=== PATIENT | female | born 1970 | race Caucasian/White ===

== ENCOUNTER 2018-04-07 09:25 | Emergency (ER) | payer BC ==
--- OUTSIDE RECORDS SUMMARY | 2018-04-07 09:27 | XMS REPORT | Clinical Summary ---
:1970 Author Organization [facility] Address [address] [place] [address] Care Team Providers Name Role Phone Ajay Daley MD Primary Care Provider Allergies No Known Allergies Current Medications Prescription Sig. Disp. Refills Start Date End Date Status CYANOCOBALAMIN, Take by mouth. Active VITAMIN B-12, (VITAMIN B-12 ORAL) CHOLECALCIFEROL, Take by mouth. Active VITAMIN D3, (VITAMIN D3 ORAL) methIMAzole (TAPAZOLE) Take 5 mg by Active 5 MG tablet mouth daily. methIMAzole (TAPAZOLE) Take 5 mg by 04/24/2017 Discontinued 5 MG tablet mouth 3 (three) times a day. Active Problems Not on file Encounters Date Type Specialty Care Team Description 04/24/2017 Office Visit Endocrinology Van Thompson, Hyperthyroidism ( Primary Dx); Graves disease after 04/06/2017 Family History Medical History Relation Name Comments No Known Problems Father Hypertension Mother Stroke Mother Relation Name Status Comments Father Alive Mother Alive Social History Tobacco Use Types Packs/Day Years Used Date Former Smoker Comments: quit Alcohol Use Drinks/Week oz/Week Comments Yes Sex Assigned at Date Recorded Not on file Last Filed Vital Signs Vital Sign Reading Time Taken Blood Pressure 124/67 04/24/2017 12:04 PM CDT Pulse 66 04/24/2017 12:04 PM CDT Temperature - - Respiratory Rate - - Oxygen Saturation - - Inhaled Oxygen Concentration - - Weight 90.3 kg (199 lb) 04/24/2017 12:04 PM CDT Height 175.3 cm (5' 9") 04/24/2017 12:04 PM CDT Body Mass Index 29.39 04/24/2017 12:04 PM CDT Plan of Treatment Health Maintenance Due Date Last Done Comments CERVICAL CANCER SCREENING 1989 INFLUENZA VACCINE 05/12/2018 Procedures Procedure Name Priority Date/Time Associated Comments Diagnosis T4, FREE Routine 04/24/2017 12:46 Hyperthyroidism Results for this PM CDT Graves disease procedure are in the results section. COMPREHENSIVE Routine 04/24/2017 12:46 Hyperthyroidism Results for this METABOLIC PANEL PM CDT Graves disease procedure are in the results section. CBC WITH PLATELET AND Routine 04/24/2017 12:46 Hyperthyroidism Results for this DIFFERENTIAL PM CDT Graves disease procedure are in the results section. T3, FREE Routine 04/24/2017 12:46 Hyperthyroidism Results for this PM CDT Graves disease procedure are in the results section. THYROID STIMULATING Routine 04/24/2017 12:46 Hyperthyroidism Results for this HORMONE PM CDT Graves disease procedure are in the results section. after 04/06/2017 Results CBC with platelet and differential (04/24/2017 12:46 PM) WBC 6.8 3.8 - 10.8 Thousand/uL [facility] [place] RBC 4.22 3.80 - 5.10 Million/uL [facility] [place] HGB 13.0 11.7 - 15.5 g/dL [facility] [place] HCT 38.7 35.0 - 45.0 % [facility] [place] MCV 91.7 80.0 - 100.0 fL [facility] [place] MCH 30.9 27.0 - 33.0 pg [facility] [place] MCHC 33.7 32.0 - 36.0 g/dL [facility] [place] RDW 13.1 11.0 - 15.0 % [facility] [employer] [facility] [place] Platelet count 223 140 - 400 Thousand/uL [facility] [place] MPV 8.2 7.5 - 12.5 fL [facility] [employer] [facility] [place] Neutrophils, absolute 3,808 1,500 - 7,800 cells/uL [facility] [place] Lymphocytes, absolute 2,530 850 - 3,900 cells/uL [facility] [place] Monocytes, absolute 326 200 - 950 cells/uL [facility] [place] Eosinophils, absolute 88 15 - 500 cells/uL [facility] [place] Basophils, absolute 48 0 - 200 cells/uL [facility] [place] Neutrophils 56.0 % [facility] [place] Lymphocytes 37.2 % [facility] [place] Monocytes 4.8 % [facility] [place] Eosinophils 1.3 % [facility] [place] Basophils + RC 0.7 % [facility] [place] Specimen Blood Resulting Agency Comment Performing Organization Information: Site ID: [id number]: [facility] Address: [address] [place], [place] [phone] Director: Josseline Escalante MD Performing Organization Address [facility] Phone Number [employer] [place] [phone] T3, free (04/24/2017 12:46 PM) T3, free 3.0 2.3 - 4.2 pg/mL [facility] [place] Specimen Blood Resulting Agency Comment Performing Organization Information: Site ID: [id number] Name: [facility] Address: [address] [place] [phone] Director: Josseline Escalante MD Performing Organization Address [facility] Center[facility]h Phone [place] [address] Thyroid stimulating hormone (04/24/2017 12:46 PM) TSH 0.93 mIU/L [facility] [place] Comment: Reference Range > or=20 Years0.40-4.50 Ranges First trimester0.26-2.66 Second trimester 0.55-2.73 Third trimester0.43-2.91 Specimen Blood Resulting Agency Comment Performing Organization Information: Site ID: [id number] Name: [facility] Address: [address] [place] [phone] Director: Josseline Escalante MD Performing Organization Address [facility] [place] [address] T4, free (04/24/2017 12:46 PM) T4, free 1.1 0.8 - 1.8 ng/dL [facility] [place] Specimen Blood Resulting Agency Comment Performing Organization Information: Site ID: [id number] Name: [facility] Address: [address] [place] [phone] Director: Josseline Escalante MD Performing Organization Address [facility] [place] [address] Comprehensive metabolic panel (04/24/2017 12:46 PM) Glucose 83 65 - 99 mg/dL [facility] Comment: [place] Fasting reference interval BUN, whole blood 9 7 - 25 mg/dL [facility] [place] Creatinine 0.73 0.50 - 1.10 mg/dL [facility] [place] EGFR Non-Afr. Tajik 97 > OR=60 [facility] mL/min/1.73m2 [place] EGFR 113 > OR=60 [facility] mL/min/1.73m2 [place] BUN/creatinine ratio NOT APPLICABLE 6 - 22 (calc) [facility] [place] Sodium 138 135 - 146 mmol/L [facility] [place] Potassium 3.9 3.5 - 5.3 mmol/L [facility] [place] Chloride 103 98 - 110 mmol/L [facility] [place] CO2 26 20 - 31 mmol/L [facility] [place] Calcium 10.2 8.6 - 10.2 mg/dL [facility] [place] Protein 7.0 6.1 - 8.1 g/dL [facility] [place] Albumin, S 4.2 3.6 - 5.1 g/dL [facility] [place] Globulin, total 2.8 1.9 - 3.7 g/dL [facility] (calc) [place] Albumin/globulin ratio 1.5 1.0 - 2.5 (calc) [facility] [place] Total bilirubin 0.5 0.2 - 1.2 mg/dL [facility] [place] Alkaline phosphatase 56 33 - 115 U/L [facility] [place] AST 20 10 - 35 U/L [facility] [place] ALT 14 6 - 29 U/L [facility] [place] Specimen Blood Resulting Agency Comment Performing Organization Information: Site ID: [id number] Name: [facility] Address: [address] [place] [phone] Director: Josseline Escalante MD Performing Organization Address City/State/Zipcode Phone Number [facility] [address] [place] [phone] after 04/06/2017 Insurance Payer Benefit Plan / Group Subscriber ID Type Phone Address BCBS BCBS CHOICE PPO/FEDERAL EMPL PPO xxxxxxxxxxxx PPO Home: [place] [phone] [address]
--- OUTSIDE RECORDS SUMMARY | 2018-04-07 09:27 | XMS REPORT | Summary of Care ---
:1970 Author Name CHANELL VERGARA M.D. Address [place] Physicians Unavailable , Care Team Providers Name Role Phone SHAJI Guadarrama, GABRIELA Unavailable Unavailable EDITA CHANDRA M.D. Unavailable Unavailable URSULA Guadarrama, CHANELL Unavailable Unavailable Amada Wild M.A. Unavailable Unavailable Unavailable Unavailable Unavailable Functional Status Name Dates Details Functional status health issues are not documented Status: Name Dates Details Cognitive status health issues are not documented Status: Problems Name Dates Details Exposure (994.9) Status: Active Itching (698.9, L29.9) Status: Active Visit for screening mammogram (V76.12, Z12.31) Status: Active Encounter for routine gynecological examination (V72.31, Z01.419) Status: Active Dysmenorrhea (625.3, N94.6) Status: Active Dyspareunia, female (625.0, N94.10) Status: Active Chronic vaginitis (616.10, N76.1) Status: Active Yeast infection (112.9, B37.9) Status: Active Medications Name Dates Details MethIMAzole TABS Refills: 0 Active Vitamin B-12 TABS Refills: 0 Active Vitamin D3 1000 UNIT Oral Tablet Refills: 0 Active Nystatin Powder NYSTATIN POWDER APPLY TO AFFECTED AREA BID PRN DISP : QS TO FILL / REFILL 1 Quantity: 45 Refills: 1 GABRIELA GIRARD M.D. Start : 14-Feb-2014 Active Naproxen 500 MG Oral Tablet NAPROSYN 550MG BID PRN DURING MENSES QTY: 30 , REFILL 2 Quantity: 30 Refills: 2 EDITA CHANDRA M.D. Start : 14-Feb-2014 Active Folic Acid CAPS Refills: 0 Active Probiotic CAPS Refills: 0 Active Nystatin Powder USE DIRECTED. Quantity: 1 Refills: 0 CHANELL VERGARA M.D. Start : 27-Mar-2017 Active NuvaRing 0.12-0.015 MG/24HR Vaginal Ring INSERT 1 RING VAGINALLY FOR 3 WEEKS THEN 1 WEEK OFF. Quantity: 1 Refills: 0 GABRIELA GIRARD M.D. Start : 13-Apr-2017 Active Allergies and Adverse Reactions Name Dates Details No Known Drug Allergies (Allergy) Status: Active Past Medical History Name Dates Details Dysmenorrhea (625.3, N94.6) Status: Active History of Diverticulosis (562.10, K57.90) Status: Resolved History of Graves disease (242.00, E05.00) Status: Resolved History of Kb's thyroiditis (245.2, E06.3) Status: Resolved History of hypothyroidism (V12.29, Z86.39) Status: Resolved History of Other and unspecified ovarian cysts (620.2, N83.20) Status: Resolved Procedures Procedure Dates Details History of Tubal Ligation Completed History of Hysteroscopy With Endometrial Ablation Completed Immunization Name Dates Details Immunizations not documented Family History Name Dates Details Family history of Diabetes Mellitus (V18.0) Status: Active Name Dates Details Family history of Acute Myocardial Infarction (V17.3) Status: Active Name Dates Details Family history of Acute Myocardial Infarction (V17.3) Status: Active Social History Name Dates Details - Status: Name Dates Details Former smoker Vital Signs Date Test Result Details No Known Vitals to report Results Date Description Value Details Results not documented Plan of Care Name Dates Details Planned Observations Planned Goals not documented Interventions Provided Medication ChangesNystatin Powder - Renew Instructions Name Dates Details Instructions not documented Encounters Appointment; GABRIELA GIRARD M.D. On: 27-Mar-2017 10:15 Encounter Diagnosis: Problem not documented
[2018-04-07] MEDS ORDERED: MECLIZINE HCL 12.5 MG TAB ONE (10:01)
--- NOTE | 2018-04-07 10:27 | EDPHYS ---
Physician Documentation [facility] Name: Yumi Ba Age: 47 yrs Sex: Female : 1970 Arrival Date: 04/07/2018 Time: : Bed 15 Private MD: Ajay Daley ED Physician Vasu Gee HPI: 04/07 09:36 This 47 yrs old Female presents to ER via Unassigned with complaints of kav Dizziness. 09:50 The patient presents with vertigo. Onset: The symptoms/episode began/occurred acutely, kav this morning. Context: occurred at home, just prior to the episode the patient experienced no apparent symptoms. Modifying factors: The symptoms are alleviated by lying down, the symptoms are aggravated by movement of head. Associated signs and symptoms: Pertinent negatives: blurred vision, chest pain, confusion, diaphoresis, focal weakness, head injury, headache, nausea, near-syncope, palpitations, seizure, syncope, tingling. Severity of symptoms: At their worst the symptoms were mild just prior to arrival. Patient's baseline: Neuro: alert and fully oriented, Motor: no deficits, Ambulation: walks without assistance, Speech: normal, The patient has a previous history of vertigo. The patient has experienced a previous episode, approximately 1 years ago. The patient has not recently seen a physician. . 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 - Social history:: Smoking status: Patient/guardian denies using tobacco, Patient/guardian denies using alcohol. - Ebola Screening: : Patient negative for fever greater than or equal to 101.5 degrees Fahrenheit, and additional compatible Ebola Virus Disease symptoms Patient denies exposure to infectious person Patient denies travel to an Ebola-affected area in the 21 days before illness onset Patient negative for fever greater than or equal to 101.5 degrees Fahrenheit, and additional compatible Ebola Virus Disease symptoms. - Hospitalizations: : No recent hospitalization is reported. ROS: 09:50 Constitutional: Negative for fever, chills, and weight loss, Eyes: Negative for injury, kav pain, redness, and discharge, ENT: Negative for injury, pain, and discharge, Neck: Negative for injury, pain, and swelling, Cardiovascular: Negative for chest pain, palpitations, and edema, Respiratory: Negative for shortness of breath, cough, wheezing, and pleuritic chest pain, Abdomen/GI: Negative for abdominal pain, nausea, vomiting, diarrhea, and constipation, Back: Negative for injury and pain, : Negative for injury, bleeding, discharge, and swelling, MS/Extremity: Negative for injury and deformity, Skin: Negative for injury, rash, and discoloration, Psych: Negative for depression, anxiety, suicide ideation, homicidal ideation, and hallucinations, Allergy/Immunology: Negative for hives, rash, and allergies, Endocrine: Negative for neck swelling, polydipsia, polyuria, polyphagia, and marked weight changes, Hematologic/Lymphatic: Negative for swollen nodes, abnormal bleeding, and unusual bruising. 09:50 Neuro: Positive for altered mental status, dizziness, vertigo, Negative for altered mental status, gait disturbance, headache, hearing loss, loss of consciousness, seizure activity, syncope, tingling, tinnitus, tremor, visual changes, weakness, acute changes. Exam: 09:50 Constitutional: This is a well developed, well nourished patient who is awake, alert, kav and in no acute distress. Head/Face: Normocephalic, atraumatic. Eyes: Pupils equal round and reactive to light, extra-ocular motions intact. Lids and lashes normal. Conjunctiva and sclera are non-icteric and not injected. Cornea within normal limits. Periorbital areas with no swelling, redness, or edema. Neck: Trachea midline, no thyromegaly or masses palpated, and no cervical lymphadenopathy. Supple, full range of motion without nuchal rigidity, or vertebral point tenderness. No Meningismus. Chest/axilla: Normal chest wall appearance and motion. Nontender with no deformity. No lesions are appreciated. Cardiovascular: Regular rate and rhythm with a normal S1 and S2. No gallops, murmurs, or rubs. Normal PMI, no JVD. No pulse deficits. Respiratory: Lungs have equal breath sounds bilaterally, clear to auscultation and percussion. No rales, rhonchi or wheezes noted. No increased work of breathing, no retractions or nasal flaring. Abdomen/GI: Soft, non-tender, with normal bowel sounds. No distension or tympany. No guarding or rebound. No evidence of tenderness throughout. Back: No spinal tenderness. No costovertebral tenderness. Full range of motion. Skin: Warm, dry with normal turgor. Normal color with no rashes, no lesions, and no evidence of cellulitis. MS/ Extremity: Pulses equal, no cyanosis. Neurovascular intact. Full, normal range of motion. Neuro: Awake and alert, GCS 15, oriented to person, place, time, and situation. Cranial nerves II-XII grossly intact. Motor strength 5/5 in all extremities. Sensory grossly intact. Cerebellar exam normal. Normal gait. Psych: Awake, alert, with orientation to person, place and time. Behavior, mood, and affect are within normal limits. 09:50 ENT: External ear(s): are unremarkable, no acute changes, Ear canal(s): are normal, no acute changes, TM's: decreased mobility, on the left, fluid levels, on the left, Examination of the other ear shows no obvious abnormality, Nose: is normal, no acute changes, Examination of the other nostril shows no obvious abnormality, Mouth: is normal, no acute changes, Posterior pharynx: is normal, no acute changes, Voice: no acute changes. Vital Signs: 09:55 BP 112 / 67; Pulse 63; Resp 18; Temp 98.1(TE); Pulse Ox 98% on R/A; Weight 88.9 kg; hj Height 5 ft. 9 in. (175.26 cm); Pain 0/10; 09:55 Body Mass Index 28.94 (88.90 kg, 175.26 cm) MDM: 09:41 Medical screening is not applicable. [facility] 09:50 Data reviewed: vital signs, nurses notes. ka Administered Medications: 09:50 Drug: Meclizine 25 mg Route: PO; 10:47 Follow up: Response: No adverse reaction Disposition: 04/08 06:33 Co-signature as Attending Physician, Vasu Gee MD I agree with the assessment and tori plan of care. Disposition: 04/07/18 10:26 Discharged to Home. Impression: Vertigo of central origin, left ear, Suppurative otitis media, unspecified, left ear. - Condition is Stable. - Discharge Instructions: Otitis Media, Adult, [id number], Vertigo, [id number]. - Prescriptions for amoxicillin 500 mg Oral capsule - take 2 capsule by ORAL route every 8 hours; 42 capsule. Meclizine 25 mg Oral Tablet - take 1 tablet by ORAL route every 8 hours As needed; 30 tablet. Medrol (Chuck) 4 mg Oral Tablets, Dose Pack - take 1 tablet by ORAL route as directed - follow package instructions; 1 packet. - Medication Reconciliation Form, Thank You Letter, Antibiotic Education, Prescription Opioid Use, Work release form form. - Follow up: Ajay Daley; Reason: If symptoms return, Recheck today's complaints, Continuance of care, Re-evaluation by your physician. - Problem is new. - Symptoms have improved. Signatures: Vasu Gee MD MD cha Vern, Katherine, CLINICAL RESEARCH COORDINATOR CLINICAL RESEARCH COORDINATOR Leonor Zapata RN RN Jose Angel Valdez RN RN Corrections: (The following items were deleted from the chart) 04/07 10:47 10:26 04/07/2018 10:26 Discharged to Home. Impression: Vertigo of central origin, left hj ear; Suppurative otitis media, unspecified, left ear. Condition is Stable. Discharge Instructions: Otitis Media, Adult, [id number], Vertigo, [id number]. Prescriptions for amoxicillin 500 mg Oral capsule - take 2 capsule by ORAL route every 8 hours; 42 capsule, Meclizine 25 mg Oral Tablet - take 1 tablet by ORAL route every 8 hours As needed; 30 tablet, Medrol (Chuck) 4 mg Oral Tablets, Dose Pack - take 1 tablet by ORAL route as directed - follow package instructions; 1 packet. and Forms are Medication Reconciliation Form, Thank You Letter, Antibiotic Education, Prescription Opioid Use. Follow up: Ajay Daley; Reason: If symptoms return, Recheck today's complaints, Continuance of care, Re-evaluation by your physician. Problem is new. Symptoms have improved. kav
--- NOTE | 2018-04-07 10:27 | ER ---
Nurse's Notes [facility] Name: Yumi Ba Age: 47 yrs Sex: Female : 1970 Arrival Date: 04/07/2018 Time: : Bed 15 Private MD: Ajay Daley Diagnosis: Vertigo of central origin, left ear;Suppurative otitis media, unspecified, left ear Presentation: 04/07 09:48 Presenting complaint: Patient states: got up with her at 0545, laid back down iw and felt dizzy, then got back up at 0730 feeling dizzy again, pt has had similar episode a couple of years ago and it ended up being an ear infection, pt denies pain to ear, dizziness has eased up but not completely resolved. Transition of care: patient was not received from another setting of care. Onset of symptoms was April 07, 2018. Risk Assessment: Do you want to hurt yourself or someone else? Patient reports no desire to harm self or others. Initial Sepsis Screen: Does the patient meet any 2 criteria? No. Patient's initial sepsis screen is negative. Does the patient have a suspected source of infection? No. Patient's initial sepsis screen is negative. 09:48 Method Of Arrival: Ambulatory iw 09:48 Acuity: NADER 3 iw 09:53 Risk Assessment: Do you want to hurt yourself or someone else? Patient reports no hj desire to harm self or others. Initial Sepsis Screen: Does the patient meet any 2 criteria? No. Patient's initial sepsis screen is negative. Does the patient have a suspected source of infection? No. Patient's initial sepsis screen is negative. Care prior to arrival: None. Triage Assessment: 09:54 General: Appears in no apparent distress. comfortable, Behavior is calm, cooperative, hj appropriate for age. Pain: Denies pain. EENT: No signs and/or symptoms were reported regarding the EENT system. Neuro: Reports dizziness. Cardiovascular: Capillary refill < 3 seconds Patient's skin is warm and dry. Respiratory: Airway is patent Respiratory effort is even, unlabored, Respiratory pattern is regular, symmetrical. GI: No signs and/or symptoms were reported involving the gastrointestinal system. : No signs and/or symptoms were reported regarding the genitourinary system. Derm: No signs and/or symptoms reported regarding the dermatologic system. Musculoskeletal: No signs and/or symptoms reported regarding the musculoskeletal system. 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 - Social history:: Smoking status: Patient/guardian denies using tobacco, Patient/guardian denies using alcohol. - Ebola Screening: : Patient negative for fever greater than or equal to 101.5 degrees Fahrenheit, and additional compatible Ebola Virus Disease symptoms Patient denies exposure to infectious person Patient denies travel to an Ebola-affected area in the 21 days before illness onset Patient negative for fever greater than or equal to 101.5 degrees Fahrenheit, and additional compatible Ebola Virus Disease symptoms. - Hospitalizations: : No recent hospitalization is reported. Screenin:53 Abuse screen: Denies threats or abuse. Denies injuries from another. Nutritional hj screening: No deficits noted. Tuberculosis screening: No symptoms or risk factors identified. Fall Risk Secondary diagnosis (15 points). Vital Signs: 09:55 BP 112 / 67; Pulse 63; Resp 18; Temp 98.1(TE); Pulse Ox 98% on R/A; Weight 88.9 kg; hj Height 5 ft. 9 in. (175.26 cm); Pain 0/10; 09:55 Body Mass Index 28.94 (88.90 kg, 175.26 cm) ED Course: 09:27 Patient arrived in ED. rg4 09:27 Ajay Daley MD is Private Physician. rg4 09:36 [facility] kav 09:36 Vasu Gee MD is Attending Physician. kav 09:41 Jose Angel Valdez RN is Primary Nurse. hj 09:53 Arm band placed on right wrist. hj 09:54 Triage completed. iw 09:55 Patient has correct armband on for positive identification. Bed in low position. Call hj light in reach. Side rails up X 1. 10:26 Ajay Daley MD is Referral Physician. kav 10:46 No provider procedures requiring assistance completed. Patient did not have IV access hj during this emergency room visit. Administered Medications: 09:50 Drug: Meclizine 25 mg Route: PO; 10:47 Follow up: Response: No adverse reaction Outcome: : Discharge ordered by . duc :46 Discharged to home ambulatory. :46 Condition: stable 10:46 Discharge instructions given to patient, Instructed on discharge instructions, follow up and referral plans. medication usage, Demonstrated understanding of instructions, follow-up care, medications, Prescriptions given X 3. :47 Patient left the ED. Signatures: Nica Estes, MACHINE GUIDE BASE WINDER MACHINE GUIDE BASE WINDER Leonor Zapata, RN RN Jose Angel Hoskins RN RN hj Garcia, Rubi rg4
[2018-04-07 10:51] VITALS: BP 112/67; TEMP 98.1; O2SAT 98
== END 2018-04-07 10:47 | disposition home or self-care (01) ==
LOC: ER 09:25
DX: H81.42 Vertigo of central origin, left ear (principal); H66.42 Suppurative otitis media, unspecified, left ear; Z91.030 Bee allergy status
CPT/HCPCS: 99283

== ENCOUNTER 2018-05-07 18:33 | Emergency (ER) | payer BC ==
--- OUTSIDE RECORDS SUMMARY | 2018-05-07 18:35 | XMS REPORT | Clinical Summary ---
:1970 Author Organization [facility] [employer] Address [address] [place] [address] Care Team Providers Name Role Phone Ajay Daley MD Primary Care Provider Allergies No Known Allergies Current Medications Prescription Sig. Disp. Refills Start Date End Date Status CYANOCOBALAMIN, VITAMIN Take by mouth. Active B-12, (VITAMIN B-12 ORAL) CHOLECALCIFEROL, VITAMIN Take by mouth. Active D3, (VITAMIN D3 ORAL) methIMAzole (TAPAZOLE) 5 Take 5 mg by mouth Active MG tablet daily. Active Problems Not on file Family History Medical History Relation Name Comments No Known Problems Father Hypertension Mother Stroke Mother Relation Name Status Comments Father Alive Mother Alive Social History Tobacco Use Types Packs/Day Years Used Date Former Smoker Comments: quit Alcohol Use Drinks/Week oz/Week Comments Yes Sex Assigned at Date Recorded Not on file Last Filed Vital Signs Not on file Plan of Treatment Health Maintenance Due Date Last Done Comments CERVICAL CANCER SCREENING 1989 INFLUENZA VACCINE 05/12/2018 Results Not on fileafter 05/06/2017 Insurance Payer Benefit Plan / Group Subscriber ID Type Phone Address BCBS BCBS CHOICE PPO/FEDERAL EMPL PPO xxxxxxxxxxxx PPO Home: [place] [phone] [address]
--- OUTSIDE RECORDS SUMMARY | 2018-05-07 18:35 | XMS REPORT | Summary of Care ---
:1970 Author Name Blake Orozco R.N. Address Unavailable Unavailable , Care Team Providers Name Role Phone SHAJI Guadarrama, GABRIELA Unavailable Unavailable EDITA CHANDRA M.D. Unavailable Unavailable URSULA Guadarrama, CHANELL Unavailable Unavailable Pam Ngo, Blake Unavailable Unavailable Unavailable Unavailable Unavailable Functional Status [...] Probiotic CAPS Refills: 0 Active Nystatin Powder Apply to affected area under breasts Quantity: 1 Refills: 0 CHANELL VERGARA M.D. [...] to report Results Date Description Value Details 11-Dec-20150:00 . [facility] - PAP PAP REPORT NEGATIVE 11-Dec-20150:00 . [facility] - HPV High Risk HPV High Risk REPORT Negative 83-Ebz-35413:00 . [facility] - HPV High Risk HPV High Risk REPORT Negative Plan of Care Name Dates Details Planned Observations Planned Goals not documented Interventions Provided Medication ChangesNystatin Powder - Renew Instructions Name Dates Details Instructions not documented Encounters Appointment; GABRIELA GIRARD M.D. On: 27-Mar-2017 10:15 Encounter Diagnosis: Problem not documented
[2018-05-07] MEDS ORDERED: NA CHLORIDE 0.9% 1,000 ML ONE (20:12)
[2018-05-07 20:26] LABS: Absolute Lymphocytes (CBC) 1.8 K/uL (0.7-4.9); Absolute Monocytes 0.5 K/uL (0.1-1.3); Absolute Neutrophil 6.6 K/uL (1.8-8.0); Basophils % 0.4 % (0-1.3); Eosinophils % 1.2 % (0-4.4); Hematocrit 38.1 % (36.0-45.0); Lymphocytes % 19.5 % (15.3-44.8); MCH 31.2 pg (27.0-35.0); MCV 91.9 fL (80-100); Monocytes % 5.7 % (3.3-12.3); RBC Red Blood Cell Count 4.15 M/uL (3.86-4.86)
[2018-05-07 20:39] LABS: Albumin 3.6 g/dL (3.4-5.0); Bilirubin Direct 0.2 mg/dL (0-0.2); Bilirubin Total 0.5 mg/dL (0.2-1.0); Potassium 3.3 mmol/L (3.5-5.1); Protein, Total 7.4 g/dL (6.4-8.2)
--- NOTE | 2018-05-07 21:24 | RAD REPORT ---
EXAM DESCRIPTION: CTAbdomen Pelvis W Contrast - 05/07/2018 9:13 pm CLINICAL HISTORY: Abdominal pain. ABD PAIN COMPARISON: CT ABD PELVIS W CONTRAST dated 10/01/2015; CT ABD PELVIS W CONTRAST dated 03/12/2015; CHES T PA AND LAT 2 VIEW dated 11/20/2015; CHEST SINGLE VIEW dated 06/19/2015 TECHNIQUE: Biphasic CT imaging of the abdomen and pelvis was performed with 100 ml non-ionic IV cont rast. All CT scans are performed using dose optimization technique as appropriate and may include automated exposure control or mA/KV adjustment according to patient size. FINDINGS: The lung bases are clear. The liver, spleen, pancreas, adrenal glands and kidneys are within normal limits. No bowel obstruction, free air, intra-abdominal free fluid or abscess. A 5 cm length of sigmoid colon in the left lower quadrant shows moderate wall thickening and pericolonic inflammatory changes. A pr ominent diverticulum is seen in this region. These findings are most compatible with acute diverticul itis. The appendix is normal. Mild free fluid is seen in the pelvis. No evidence of significant lymph adenopathy. No suspicious bony findings. IMPRESSION: 5 cm length of sigmoid acute diverticulitis without peridiverticular abscess.
[2018-05-07 22:08] LABS: Urine Bacteria <20 /HPF (<20); Urine Culture Reflex Order NOT NEEDED; Urine RBC <5 /HPF (NONE SEEN)
--- NOTE | 2018-05-07 22:23 | ER ---
Nurse's Notes [facility] Name: Yumi Ba Age: 47 yrs Sex: Female : 1970 Arrival Date: 05/07/2018 Time: 18:38 Bed 14 Private MD: Ajay Daley Diagnosis: Acute diverticulitis Presentation: 05/07 18:49 Presenting complaint: Patient states: Lower abdominal, suprapubic pain and back pain aj1 since Thursday night. Reports urinary frequency and urgency. Denies dysuria. Denies N/V. Reports diarrhea. Transition of care: patient was not received from another setting of care. Onset of symptoms was May 05, 2018. Risk Assessment: Do you want to hurt yourself or someone else? Patient reports no desire to harm self or others. Initial Sepsis Screen: Does the patient meet any 2 criteria? No. Patient's initial sepsis screen is negative. Does the patient have a suspected source of infection? No. Patient's initial sepsis screen is negative. Care prior to arrival: None. 18:49 Method Of Arrival: Ambulatory aj1 18:49 Acuity: NADER 3 aj1 Triage Assessment: 18:55 General: Appears in no apparent distress. comfortable, Behavior is calm, cooperative, aj1 appropriate for age. Pain: Denies pain. Complains of pain in suprapubic area, right lower quadrant and left lower quadrant Pain currently is 0 out of 10 on a pain scale. at worst was 9 out of 10 on a pain scale. Quality of pain is described as crampy. Neuro: Level of Consciousness is awake, alert, obeys commands. Cardiovascular: Patient's skin is warm and dry. Respiratory: Airway is patent Respiratory effort is even, unlabored, Respiratory pattern is regular, symmetrical. GI: Reports lower abdominal pain, rectal bleeding, nausea. : Reports urgency, urinary frequency. 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 - Social history:: Smoking status: Patient/guardian denies using tobacco. - Ebola Screening: : Patient denies travel to an Ebola-affected area in the 21 days before illness onset. Screenin:16 Abuse screen: Denies threats or abuse. Denies injuries from another. Nutritional bp screening: No deficits noted. Tuberculosis screening: No symptoms or risk factors identified. Fall Risk None identified. Assessment: 19:10 General: Appears in no apparent distress. comfortable, Behavior is calm, cooperative, bp appropriate for age. Pain: Complains of pain in abdomen. Neuro: Level of Consciousness is awake, alert, obeys commands, Oriented to person, place, time, situation, Appropriate for age. Cardiovascular: No deficits noted. Respiratory: Airway is patent Respiratory effort is even, unlabored, Respiratory pattern is regular, symmetrical. GI: Bowel sounds present X 4 quads. Abdomen is tender to palpation X 4 quads. : Reports burning with urination, urinary frequency. EENT: No deficits noted. Derm: No deficits noted. Musculoskeletal: Circulation, motion, and sensation intact. Range of motion: intact in all extremities. 21:43 Reassessment: ALL CURRENT ORDERS COMPLETED, LAB/RAD RESULTS PENDING. bp 22:31 Reassessment: PT D/C HOME AMBULATORY WITH FAMILY, DX WITH ACUTE DIVERTICULITIS. bp Vital Signs: 18:55 BP 112 / 63; Pulse 97; Resp 18; Temp 98.9; Pulse Ox 100% on R/A; Weight 86.18 kg (R); aj1 Height 5 ft. 9 in. (175.26 cm); Pain 0/10; 20:00 BP 100 / 44; Pulse 81; Resp 14; Pulse Ox 97% ; bp 20:51 BP 101 / 53; Pulse 75; Resp 14; Pulse Ox 100% ; bp 21:43 BP 108 / 43; Pulse 78; Resp 16; Pulse Ox 100% ; bp 18:55 Body Mass Index 28.06 (86.18 kg, 175.26 cm) aj1 ED Course: 18:38 Patient arrived in ED. jb7 18:39 Ajay Daley MD is Private Physician. jb7 18:54 Triage completed. aj1 18:55 Arm band placed on Patient placed in waiting room, Patient notified of wait time. aj1 19:44 Fransisoc Tatum MD is Attending Physician. pkl 19:49 Ajay Guzmán, RN is Primary Nurse. bp 20:04 Inserted saline lock: 20 gauge in right forearm, using aseptic technique. Blood bp collected. 20:16 Patient has correct armband on for positive identification. Bed in low position. Call bp light in reach. Side rails up X2. Adult w/ patient. 21:13 CT Abd/Pelvis - W/Contrast In Process Unspecified. EDMS 22:22 Festus Rowe MD is Referral Physician. pkl 22:31 No provider procedures requiring assistance completed. IV discontinued, intact, bp bleeding controlled, No redness/swelling at site. Pressure dressing applied. Administered Medications: 20:14 Drug: NS 0.9% 1000 ml Route: IV; Rate: 1000 ml; Site: right forearm; bp 22:28 Follow up: IV Status: Completed infusion; IV Intake: 1000ml bp 22:27 Drug: Flagyl 500 mg Route: PO; bp 22:29 Follow up: Response: Medication administered at discharge. bp 22:28 Drug: K-Dur 20 mEq Route: PO; bp 22:28 Follow up: Response: Medication administered at discharge. bp 22:28 Drug: UltRAM 50 mg Route: PO; bp 22:29 Follow up: Response: Medication administered at discharge. bp 22:28 Drug: Cipro 500 mg Route: PO; bp 22:29 Follow up: Response: Medication administered at discharge. bp Intake: 22:28 IV: 1000ml; Total: 1000ml. bp Outcome: 22:22 Discharge ordered by . pkl 22:30 Discharged to home ambulatory, with family. bp 22:30 Condition: stable 22:30 Discharge instructions given to patient, Instructed on discharge instructions, follow up and referral plans. medication usage, Demonstrated understanding of instructions, follow-up care, medications, Prescriptions given X 3. 22:34 Patient left the ED. bp Signatures: Dispatcher [employer] EDMS Aide [place] RN RN aj1 Fransisco Tatum MD MD pkl Bryant, Jason jb7 Ajay Guzmán, SHELTON RN bp Corrections: (The following items were deleted from the chart) 21:44 20:52 Reassessment: bp bp
--- NOTE | 2018-05-07 22:23 | EDPHYS ---
Physician Documentation [facility] Name: Yumi Ba Age: 47 yrs Sex: Female : 1970 Arrival Date: 05/07/2018 Time: 18:38 Bed 14 Private MD: Ajay Daley ED Physician Fransisco Tatum HPI: 05/07 19:56 This 47 yrs old Female presents to ER via Ambulatory with complaints of pkl Abdominal Pain. 19:56 The patient presents with abdominal pain in the lower abdomen. Onset: The pkl symptoms/episode began/occurred 2 day(s) ago. The symptoms do not radiate. Associated signs and symptoms: Pertinent positives: back pain, dysuria and frequency of urination. 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 - Social history:: Smoking status: Patient/guardian denies using tobacco. - Ebola Screening: : Patient denies travel to an Ebola-affected area in the 21 days before illness onset. ROS: 19:56 Eyes: Negative for injury, pain, redness, and discharge, ENT: Negative for injury, pkl pain, and discharge, Neck: Negative for injury, pain, and swelling, Cardiovascular: Negative for chest pain, palpitations, and edema, Respiratory: Negative for shortness of breath, cough, wheezing, and pleuritic chest pain. 19:56 Abdomen/GI: Positive for abdominal pain, of the right lower quadrant and left lower quadrant, Negative for nausea, vomiting, and diarrhea. 19:56 Back: Positive for pain at rest, of the lower back. 19:56 : Positive for urinary symptoms, urinary frequency, burning with urination. 19:56 MS/extremity: Negative for acute changes. 19:56 Skin: Negative for rash. 19:56 Neuro: Negative for altered mental status. Exam: 19:56 Head/Face: Normocephalic, atraumatic. Eyes: Pupils equal round and reactive to light, pkl extra-ocular motions intact. Lids and lashes normal. Conjunctiva and sclera are non-icteric and not injected. Cornea within normal limits. Periorbital areas with no swelling, redness, or edema. ENT: Nares patent. No nasal discharge, no septal abnormalities noted. Tympanic membranes are normal and external auditory canals are clear. Oropharynx with no redness, swelling, or masses, exudates, or evidence of obstruction, uvula midline. Mucous membranes moist. Neck: Trachea midline, no thyromegaly or masses palpated, and no cervical lymphadenopathy. Supple, full range of motion without nuchal rigidity, or vertebral point tenderness. No Meningismus. Chest/axilla: Normal chest wall appearance and motion. Nontender with no deformity. No lesions are appreciated. Cardiovascular: Regular rate and rhythm with a normal S1 and S2. No gallops, murmurs, or rubs. Normal PMI, no JVD. No pulse deficits. Respiratory: Lungs have equal breath sounds bilaterally, clear to auscultation and percussion. No rales, rhonchi or wheezes noted. No increased work of breathing, no retractions or nasal flaring. 19:56 Abdomen/GI: Bowel sounds: normal, Palpation: soft, mild abdominal tenderness, in the right lower quadrant and left lower quadrant. 19:56 Back: pain, that is mild, of the lower back. 19:56 Musculoskeletal/extremity: Exam is negative for acute changes. 19:56 Skin: Exam negative for rash. 19:56 Neuro: Orientation: is normal, Mentation: is normal, Cranial nerves: grossly normal, Motor: is normal. Vital Signs: 18:55 BP 112 / 63; Pulse 97; Resp 18; Temp 98.9; Pulse Ox 100% on R/A; Weight 86.18 kg (R); aj1 Height 5 ft. 9 in. (175.26 cm); Pain 0/10; 20:00 BP 100 / 44; Pulse 81; Resp 14; Pulse Ox 97% ; bp 20:51 BP 101 / 53; Pulse 75; Resp 14; Pulse Ox 100% ; bp 21:43 BP 108 / 43; Pulse 78; Resp 16; Pulse Ox 100% ; bp 18:55 Body Mass Index 28.06 (86.18 kg, 175.26 cm) [facility] MDM: 19:44 Patient medically screened. pkl 22:21 Data reviewed: vital signs, nurses notes, lab test result(s), radiologic studies, CT pkl scan. 05/07 19:16 Order name: Urine Culture [facility] 05/07 19:16 Order name: Urine Microscopic Only; Complete Time: 22:12 w 05/07 19:56 Order name: Amylase, Serum; Complete Time: 22:12 pkl 05/07 19:56 Order name: Basic Metabolic Panel; Complete Time: 22:12 pk 05/07 19:56 Order name: CBC with Diff; Complete Time: 20:37 pkl 05/07 19:56 Order name: Creatinine for Radiology; Complete Time: 20:37 pkl 05/07 19:56 Order name: Hepatic Function; Complete Time: 22:12 pk 05/07 19:56 Order name: Lipase; Complete Time: 22:12 pkl 05/07 20:09 Order name: CT Abd/Pelvis - W/Contrast; Complete Time: 22:12 pk 05/07 19:16 Order name: Urine Test (obtain specimen); Complete Time: 20:03 [facility] 05/07 19:16 Order name: Urine Dipstick-Ancillary (obtain specimen); Complete Time: 20:03 [facility] 05/07 19:56 Order name: IV Saline Lock; Complete Time: 20:03 pk 05/07 19:56 Order name: Labs collected and sent; Complete Time: 20:03 pkl Administered Medications: 20:14 Drug: NS 0.9% 1000 ml Route: IV; Rate: 1000 ml; Site: right forearm; bp 22:28 Follow up: IV Status: Completed infusion; IV Intake: 1000ml bp 22:27 Drug: Flagyl 500 mg Route: PO; bp 22:29 Follow up: Response: Medication administered at discharge. bp 22:28 Drug: K-Dur 20 mEq Route: PO; bp 22:28 Follow up: Response: Medication administered at discharge. bp 22:28 Drug: UltRAM 50 mg Route: PO; bp 22:29 Follow up: Response: Medication administered at discharge. bp 22:28 Drug: Cipro 500 mg Route: PO; bp 22:29 Follow up: Response: Medication administered at discharge. bp Disposition: 05/07/18 22:22 Discharged to Home. Impression: Acute diverticulitis. - Condition is Stable. - Prescriptions for Flagyl 500 mg Oral Tablet - take 1 tablet by ORAL route every 6 hours for 10 days; 40 tablet. Ultram 50 mg Oral Tablet - take 1 tablet by ORAL route every 8 hours As needed; 20 tablet. Cipro 500 mg Oral Tablet - take 1 tablet by ORAL route every 12 hours for 7 days; 14 tablet. - Medication Reconciliation Form, Thank You Letter, Antibiotic Education, Prescription Opioid Use form. - Follow up: Festus Rowe MD; When: 2 - 3 days; Reason: Re-evaluation by your physician. - Problem is new. - Symptoms have improved. Signatures: Dispatcher [employer] EDMS Aide [place], RN RN aj1 Fransisco Tatum MD MD pkl Simi Santos, DERRICK BUILDER-C DERRICK BUILDER-Csnw Ajay Guzmán, RN RN bp Corrections: (The following items were deleted from the chart) 20:43 19:51 URINE DIPSTICK--ANCILLARY+U.LAB.BRZ ordered. EDMS EDMS 20:43 19:51 URINE --ANCILLARY+UC.LAB.BRZ ordered. EDMS EDMS 20:43 20:37 URINE DIPSTICK--ANCILLARY+U.LAB.BRZ reviewed. pkl EDMS 20:43 20:37 URINE --ANCILLARY+UC.LAB.BRZ reviewed. pkl EDMS 22:34 22:22 05/07/2018 22:22 Discharged to Home. Impression: Acute diverticulitis. Condition bp is Stable. Forms are Medication Reconciliation Form, Thank You Letter, Antibiotic Education, Prescription Opioid Use. Follow up: Festus Rowe; When: 2 - 3 days; Reason: Re-evaluation by your physician. Problem is new. Symptoms have improved. pkl
[2018-05-07] MEDS ORDERED: POTASSIUM CL SA 10 MEQ TAB PO ONE (22:26)
[2018-05-07] MEDS ORDERED: CIPROFLOXACIN HCL 500 MG TAB ONE (22:26)
[2018-05-07] MEDS ORDERED: TRAMADOL HCL 50 MG TAB ONE (22:26)
[2018-05-07] MEDS ORDERED: metroNIDAZOLE 500 MG TABLET ONE (22:27)
[2018-05-07 22:45] VITALS: TEMP 98.9
[2018-05-07 22:47] VITALS: O2SAT 100
[2018-05-07 22:49] VITALS: BP 108/43
== END 2018-05-07 22:34 | disposition home or self-care (01) ==
LOC: ER 18:33
DX: K57.92 Diverticulitis of intestine, part unspecified, without perforation or abscess without bleeding (principal); Z91.030 Bee allergy status; E06.3 Autoimmune thyroiditis; E05.00 Thyrotoxicosis with diffuse goiter without thyrotoxic crisis or storm
CPT/HCPCS: 36415; 74177; 80048; 80076; 81015; 82150; 83690; 85025; 87086; 87088; 96360; 96361; 99284; J7030; Q9967

== ENCOUNTER 2018-10-01 12:30 | Emergency (ER) | payer BC ==
[2018-10-01] MEDS ORDERED: KETOROLAC 30 MG/ML INJ ONE (13:19)
[2018-10-01] MEDS ORDERED: DIAZEPAM 5 MG TABLET ONE (13:20)
[2018-10-01] MEDS ORDERED: METHYLPREDNISOLONE 125 MG INJ ONE (14:49)
--- NOTE | 2018-10-01 14:52 | EDPHYS ---
Physician Documentation [facility] Name: Yumi Ba Age: 48 yrs Sex: Female : 1970 Arrival Date: 10/01/2018 Time: 12:32 Bed 20 Private MD: Ajay Daley ED Physician Jadon Sloan HPI: 10/01 13:00 This 48 yrs old Female presents to ER via Ambulatory with complaints of Stiff pm1 Neck. 13:00 The patient or guardian complains of pain, that is acute. The symptoms are located left pm1 trapezius. Onset: The symptoms/episode began/occurred 3 day(s) ago. Context: The problem was sustained at home, The neck injury/problem resulted from from unknown cause. Associated signs and symptoms: Pertinent negatives: fever, headache, bladder incontinence, bowel incontinence, numbness, tingling, weakness. The pain does not radiate. Modifying factors: The symptoms are alleviated by remaining still, the symptoms are aggravated by movement. Severity of symptoms: in the emergency department the symptoms are actually worse. The patient has not experienced similar symptoms in the past. The patient has not recently seen a physician, went to chiropractor prior to arrival today and reports no improvement from adjustments. 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 - Social history:: Smoking status: Patient/guardian denies using tobacco, Patient uses alcohol. - Ebola Screening: : Patient negative for fever greater than or equal to 101.5 degrees Fahrenheit, and additional compatible Ebola Virus Disease symptoms Patient denies exposure to infectious person Patient denies travel to an Ebola-affected area in the 21 days before illness onset. ROS: 13:00 Constitutional: Negative for fever, chills, and weight loss, Eyes: Negative for injury, pm1 pain, redness, and discharge, ENT: Negative for injury, pain, and discharge. 13:00 Cardiovascular: Negative for chest pain, palpitations, and edema, Respiratory: Negative for shortness of breath, cough, wheezing, and pleuritic chest pain, Abdomen/GI: Negative for abdominal pain, nausea, vomiting, diarrhea, and constipation, Back: Negative for injury and pain, MS/Extremity: Negative for injury and deformity, Skin: Negative for injury, rash, and discoloration, Neuro: Negative for headache, weakness, numbness, tingling, and seizure. 13:00 Neck: Positive for pain with movement, of the left trapezius. Exam: 13:00 Constitutional: This is a well developed, well nourished patient who is awake, alert, pm1 and in no acute distress. Head/Face: Normocephalic, atraumatic. Eyes: Pupils equal round and reactive to light, extra-ocular motions intact. Lids and lashes normal. Conjunctiva and sclera are non-icteric and not injected. Cornea within normal limits. Periorbital areas with no swelling, redness, or edema. ENT: Nares patent. No nasal discharge, no septal abnormalities noted. Tympanic membranes are normal and external auditory canals are clear. Oropharynx with no redness, swelling, or masses, exudates, or evidence of obstruction, uvula midline. Mucous membranes moist. 13:00 Chest/axilla: Normal chest wall appearance and motion. Nontender with no deformity. No lesions are appreciated. Cardiovascular: Regular rate and rhythm with a normal S1 and S2. No gallops, murmurs, or rubs. Normal PMI, no JVD. No pulse deficits. Respiratory: Lungs have equal breath sounds bilaterally, clear to auscultation and percussion. No rales, rhonchi or wheezes noted. No increased work of breathing, no retractions or nasal flaring. Abdomen/GI: Soft, non-tender, with normal bowel sounds. No distension or tympany. No guarding or rebound. No evidence of tenderness throughout. Back: No spinal tenderness. No costovertebral tenderness. Full range of motion. Skin: Warm, dry with normal turgor. Normal color with no rashes, no lesions, and no evidence of cellulitis. MS/ Extremity: Pulses equal, no cyanosis. Neurovascular intact. Full, normal range of motion. 13:00 Neck: External neck: is normal, C-spine: vertebral tenderness, is not appreciated, ROM/movement: Meningeal signs: are not present, Kernig's sign is negative, Brudzinski's sign is negative, nuchal rigidity, is not appreciated, muscle spasm present to left trapezius. 13:00 Neuro: Orientation: is normal, Motor: is normal, moves all fours, Gait: is steady, at a normal pace, without difficulty. Vital Signs: 12:36 BP 123 / 72; Pulse 74; Resp 18; Temp 97.4(TE); Pulse Ox 100% on R/A; Weight 87.54 kg; hj Height 5 ft. 9 in. (175.26 cm); Pain 10/10; 14:40 BP 122 / 57; Pulse 77; Resp 17; Pulse Ox 97% on R/A; mh5 12:36 Body Mass Index 28.50 (87.54 kg, 175.26 cm) hj MDM: 12:38 Patient medically screened. pm1 14:08 Data reviewed: vital signs. Data interpreted: Pulse oximetry: on room air is 100 %. pm1 Interpretation: normal. ED course: Patient reports improvement in pain but would like additional medication for pain. 14:49 Counseling: I had a detailed discussion with the patient and/or guardian regarding: the pm1 historical points, exam findings, and any diagnostic results supporting the discharge/admit diagnosis, the need for outpatient follow up, to return to the emergency department if symptoms worsen or persist or if there are any questions or concerns that arise at home. Administered Medications: 13:19 Drug: TORadol 60 mg Route: IM; Site: left gluteus; jl7 14:00 Follow up: Response: No adverse reaction; Pain is decreased jl7 13:20 Drug: Valium 5 mg Route: PO; jl7 14:00 Follow up: Response: No adverse reaction; Pain is decreased jl7 14:45 Drug: SOLU-Medrol 125 mg Route: IM; Site: right gluteus; jl7 15:04 Follow up: Response: No adverse reaction jl7 Disposition: 16:07 Co-signature as Attending Physician, Jadon Sloan MD I agree with the assessment and rn plan of care. Disposition: 10/01/18 14:51 Discharged to Home. Impression: Strain of muscle, fascia and tendon at neck level. - Condition is Stable. - Discharge Instructions: Muscle Strain. - Prescriptions for Valium 2 mg Oral Tablet - take 1 tablet by ORAL route every 8 hours As needed; 15 tablet. Medrol (Chuck) 4 mg Oral Tablets, Dose Pack - take 1 tablet by ORAL route as directed - follow package instructions; 1 packet. - Medication Reconciliation Form, Thank You Letter, Antibiotic Education, Prescription Opioid Use form. - Follow up: Emergency Department; When: As needed; Reason: Worsening of condition. Follow up: Ajya Daley MD; When: 2 - 3 days; Reason: Recheck today's complaints, Continuance of care, Re-evaluation by your physician. - Problem is new. - Symptoms have improved. Signatures: Jadon Sloan MD MD rn Joaquin, Henry RN RN Soham Blanco, AARON CASH CLERK pm1 Mariluz Pickens RN RN jl7 Corrections: (The following items were deleted from the chart) 15:04 14:51 10/01/2018 14:51 Discharged to Home. Impression: Strain of muscle, fascia and jl7 tendon at neck level. Condition is Stable. Forms are Medication Reconciliation Form, Thank You Letter, Antibiotic Education, Prescription Opioid Use. Follow up: Emergency Department; When: As needed; Reason: Worsening of condition. Follow up: Ajay Daley; When: 2 - 3 days; Reason: Recheck today's complaints, Continuance of care, Re-evaluation by your physician. Problem is new. Symptoms have improved. pm1
--- NOTE | 2018-10-01 14:52 | ER ---
Nurse's Notes [facility] Name: Yumi Ba Age: 48 yrs Sex: Female : 1970 Arrival Date: 10/01/2018 Time: 12:32 Bed 20 Private MD: Ajay Daley Diagnosis: Strain of muscle, fascia and tendon at neck level Presentation: 10/01 12:32 Presenting complaint: Patient states: i started having this stiff neck when i woke up Thursday and its getting worse, denies numbness or tingling on either arms; denies trauma to the area;. Transition of care: patient was not received from another setting of care. Onset of symptoms was October 01, 2018. Risk Assessment: Do you want to hurt yourself or someone else? Patient reports no desire to harm self or others. Initial Sepsis Screen: Does the patient meet any 2 criteria? No. Patient's initial sepsis screen is negative. Does the patient have a suspected source of infection? No. Patient's initial sepsis screen is negative. Care prior to arrival: None. 12:32 Method Of Arrival: Ambulatory 12:32 Acuity: NADER 4 Triage Assessment: 12:36 General: Appears in no apparent distress. uncomfortable, Behavior is calm, cooperative, hj appropriate for age. Pain: Complains of pain in neck. 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 - Social history:: Smoking status: Patient/guardian denies using tobacco, Patient uses alcohol. - Ebola Screening: : Patient negative for fever greater than or equal to 101.5 degrees Fahrenheit, and additional compatible Ebola Virus Disease symptoms Patient denies exposure to infectious person Patient denies travel to an Ebola-affected area in the 21 days before illness onset. Screenin:35 Abuse screen: Denies threats or abuse. Denies injuries from another. Nutritional hj screening: No deficits noted. Tuberculosis screening: No symptoms or risk factors identified. Fall Risk None identified. Assessment: 13:20 General: Appears in no apparent distress. uncomfortable, Behavior is calm, cooperative, jl7 appropriate for age. Pain: Complains of pain in left side of neck Pain currently is 10 out of 10 on a pain scale. Quality of pain is described as sharp, Pain began 2-3 days ago. Is continuous. Neuro: Level of Consciousness is awake, alert, obeys commands, Oriented to person, place, time, situation, Moves all extremities. Full function Gait is steady, Speech is normal, Cardiovascular: Patient's skin is warm and dry. Respiratory: Airway is patent Respiratory effort is even, unlabored, Respiratory pattern is regular, symmetrical. GI: No signs and/or symptoms were reported involving the gastrointestinal system. : No signs and/or symptoms were reported regarding the genitourinary system. EENT: No signs and/or symptoms were reported regarding the EENT system. Derm: Skin is pink, warm \\T\\ dry. Musculoskeletal: Range of motion: limited in neck. 14:00 Reassessment: Pt reports decreased pain, rated 9/10. Original rating pt reported "It's jl7 a 15/10 and now it's a 9/10." Pt was unable to turn head upon arrival and now pt is able to turn head approximately 20 degrees. ERP notified, see MAR for orders. 14:45 Reassessment: Pt reports symptoms improved, Medicated as ordered, pt states "How long jl7 do I have to stay after the injection?" Pt informed of shot time, ERP notified. Vital Signs: 12:36 BP 123 / 72; Pulse 74; Resp 18; Temp 97.4(TE); Pulse Ox 100% on R/A; Weight 87.54 kg; hj Height 5 ft. 9 in. (175.26 cm); Pain 10/10; 14:40 BP 122 / 57; Pulse 77; Resp 17; Pulse Ox 97% on R/A; mh5 12:36 Body Mass Index 28.50 (87.54 kg, 175.26 cm) ED Course: 12:32 Patient arrived in ED. hj 12:33 Ajay Daley MD is Private Physician. mr 12:35 Triage completed. hj 12:36 Arm band placed on right wrist. hj 12:37 Soham Baptiste NP is PHCP. pm1 12:37 Jadon Sloan MD is Attending Physician. pm1 12:37 Mariluz Pickens, SHE[place]TON is Primary Nurse. jl7 12:37 Patient has correct armband on for positive identification. Bed in low position. Call hj light in reach. Side rails up X 1. Adult w/ patient. 14:49 Ajay Daley MD is Referral Physician. pm1 14:56 No provider procedures requiring assistance completed. Patient did not have IV access jl7 during this emergency room visit. Administered Medications: 13:19 Drug: TORadol 60 mg Route: IM; Site: left gluteus; jl7 14:00 Follow up: Response: No adverse reaction; Pain is decreased jl7 13:20 Drug: Valium 5 mg Route: PO; jl7 14:00 Follow up: Response: No adverse reaction; Pain is decreased jl7 14:45 Drug: SOLU-Medrol 125 mg Route: IM; Site: right gluteus; jl7 15:04 Follow up: Response: No adverse reaction jl7 Outcome: 14:51 Discharge ordered by MD. pm1 15:02 Discharged to home ambulatory, with family. jl7 15:02 Condition: stable 15:02 Discharge instructions given to patient, family, Instructed on discharge instructions, follow up and referral plans. medication usage, Demonstrated understanding of instructions, follow-up care, medications, Prescriptions given X 2. 15:04 Patient left the ED. jl7 Signatures: Janae Hernandez Henry, RN RN Soham Baptiste NP CORSAGE MAKER pm1 Emelina Michelle [facility] Mariluz Pickens, SHELTON RN jl7
[2018-10-01 15:16] VITALS: TEMP 97.4
[2018-10-01 15:17] VITALS: BP 122/57; O2SAT 97
--- OUTSIDE RECORDS SUMMARY | 2018-10-01 19:00 | XMS REPORT | Clinical Summary ---
:1970 Author Organization [facility] Address [address] [place] [address] Care Team Providers Name Role Phone Ajay Daley MD Primary Care Provider Allergies No Known Allergies Medications Medication Sig Dispensed Refills Start Date End Date Status CYANOCOBALAMIN, VITAMIN Take by mouth. 0 Active B-12, (VITAMIN B-12 ORAL) CHOLECALCIFEROL, Take by mouth. 0 Active VITAMIN D3, (VITAMIN D3 ORAL) methIMAzole (TAPAZOLE) Take 5 mg by 0 Active 5 MG tablet mouth daily. Active Problems Not on file Family History Medical History Relation Name Comments No Known Problems Father Hypertension Mother Stroke Mother Relation Name Status Comments Father Alive Mother Alive Social History Tobacco Use Types Packs/Day Years Used Date Former Smoker Comments: quit Alcohol Use Drinks/Week oz/Week Comments Yes Sex Assigned at Date Recorded Not on file Job Start Date Occupation Industry Not on file Not on file Not on file Travel History Travel Start Travel End No recent travel history available. Last Filed Vital Signs Not on file Plan of Treatment Health Maintenance Due Date Last Done Comments CERVICAL CANCER SCREENING 1989 INFLUENZA VACCINE 05/12/2018 BREAST CANCER SCREENING 2018 COLON CANCER SCREENING 2018 SHINGLES VACCINES (1 of 2) 2018 Results Not on fileafter 09/30/2017 Insurance Payer Benefit Plan / Group Subscriber ID Type Phone Address BCBS BCBS CHOICE PPO/FEDERAL EMPL PPO xxxxxxxxxxxx PPO Advance Directives Patient has advance care planning documents on file. For more information, please contact:Esau Moser[address] [place] [address]
--- OUTSIDE RECORDS SUMMARY | 2018-10-01 19:00 | XMS REPORT | Summary of Care ---
:1970 Author Name Blake Orozco R.N. Address Unavailable Unavailable , Care Team Providers Name Role Phone EDITA CHANDRA M.D. Unavailable Unavailable CHANELL VERGARA M.D. Unavailable Unavailable Unavailable Unavailable Unavailable Functional Status [...] Active Yeast infection (112.9, B37.9) Status: Active Encounter for gynecological examination without abnormal finding (V72.31, Z01.419) Status: Active Screening for STDs (sexually transmitted diseases) (V74.5, Z11.3) Status: Active Thyroid disorder (246.9, E07.9) Status: Active Medications Name Dates Details MethIMAzole TABS Refills: 0 R.N.Active Vitamin B-12 TABS Refills: 0 R.N.Active Vitamin D3 1000 UNIT Oral Tablet Refills: 0 R.N.Active Naproxen 500 MG Oral Tablet NAPROSYN 550MG BID PRN DURING MENSES QTY: 30 , REFILL 2 Quantity: 30 Refills: 2 EDITA CHANDRA M.D. Start : 14-Feb-2014 Active Folic Acid CAPS Refills: 0 R.N.Active Probiotic CAPS Refills: 0 R.N.Active Nystatin Powder Apply to affected area under breasts Quantity: 1 Refills: 0 CHANELL VERGARA M.D. Start : 27-Mar-2017 Active Allergies and Adverse Reactions Name Dates [...] N83.20) Status: Resolved Procedures Procedure Dates Details . [facility] - Affirm VPIII (BV Panel) Date: 23-Jun-2018 [place] Digital Mammo Screen Brian w aramis [id number] Date: 23-Jun-2018 History of Tubal Ligation Completed History of [...] smoker Vital Signs Date Test Result Details [id number] BP Systolic 113 mm[Hg] Status: Comments: Location: LUE; Position: Sitting BP Diastolic 69 mm[Hg] Status: Comments: Location: LUE; Position: Sitting Height 69 in Status: Weight 189 lb Status: Body Mass Index Calculated 27.91 kg/m2 Status: Body Surface Area Calculated 2.02 m2 Status: Results Date Description Value Details :05 [LH] TSH+Free T4 TSH 0.720 {uIU/ml} Range: 0.360-3.740 T4 Free 0.91 ng/dl Range: 0.76-1.46 : [QLH] RPR RPR Non-Reactive Range: Non-Reactive : [QH] HEPATITIS B SURFACE ANTIGEN W/REFL CONFIRM Hepatitis B Surface Antigen Negative Range: Negative : [QLH] HEPATITIS C ANTIBODY Hepatitis C Antibody Negative [QH] HIV AB, HIV 1/2, EIA, WITH REFLEXES HIV Ag/Ab 4th Gen Negative Range: Negative Comments: HIV test results should be considered positive only when both the screening andthe confirmatory tests are positive. A negative confirmatory test in patientswith a positive screening test does not exclud e HIV infection. If clincallywarranted, an HIV RNA quantitative test should be ordered. [id number] [LH] Herpes Simplex Virus 1 and 2 Antibody IgG Herpes Simplex Virus <0.2 {AI} Range: <=0.8 1 IgG Comments: Antibody Index (AI) Results Interpretation-------- ------- 0.0-0.8 Negative No detectable IgG Antibody.0.9-1.0 Equivocal Rep eat testing suggested in 10-14 days.>= 1.10 Positive Indicates presence of detectable IgG Antibody. Herpes Simplex Virus >8.0 {AI} (Above Range: <=0.8 2 IgG high threshold) Comments: Antibody Index (AI) Results Interpretation ------- 0.0-0.8 Negative No detectable IgG Antibody.0.9-1.0 Equivocal Rep eat testing suggested in 10-14 days.>= 1.10 Positive Indicates presence of detectable IgG Antibody. [id number] . Comments: Department of Pathology & Laboratory Medicine For: [facility] [id number] [place] [address] [address], [address] Phon Bernie e: [phone] Email: [email or web address] [address] [email or web address] Thin Prep CervicalEndocervical LMP: - PAP 06/13/18 Clinical History: Routine HPVHPV 16 & 18/45 Statement of Adequacy:Satisfactory for evalu ation.Endocervical/transformation component present. Diagnosis: Negative for intraepithelial lesion or malignancy. Mail Carrier And Clerk: Emelina Fleming VPMTrichomonas~NegativeGardnerel la~NegativeCandida~NegativeThe Affirm VPIII Microbial Identification Test for Allyson species (C. albicans, C.glabrata, C. kefyr, C. krusei, C. parapsilosis, C. tropicalis) can detect 1 x 10(4) CFUof Ca ndida species in log phase per assay, 2 x 10(5) CFU of G. vaginalis in log phase perassay and 5 x 10(3) , and trichomonads (T. vaginalis) per assay. A negative test resultdoes not exclude the possibilit y of vaginitis/vaginosis. As in many clinical situations,diagnosis should not be based on the results of a single laboratory test. Results shouldbe interpreted in conjunction with other clinical and lab oratory data available to theclinician such as pH, amine odor, clue cells and vaginal discharge characteristics.Simultaneous infections by more than one organism are common.Disclaimer:Testing is perform ed using FDA-approved Affirm FLIGHT SECURITY SPECIALIST III Microbial Identification system,i.e., nucleic acid hybridization. The assay has been validated/verified by the [facility] of the [place] Department of Pathology & Laboratory Medicine. The performance of this test on patient specimens collected during or immediately afterantimicrobial therapy is unknown. The presence or absence of Allyson species, G.vaginalis or T. vaginalis cannot be used as a test for therapeutic success or failure.Kate Malik MD, PhD HPVHigh Risk~NegativeTesting is performed using FDA-approved APTIMA HPV assay (i.e., Transcriptio n-mediatedamplification of E6/E7 viral mRNA followed by hybridization protection assay). Thisassay is designed to detect the 14 high-risk types of human papillomavirus (HPV Types 16,18, 31, 33, 35, 39, 45, 51, 52, 56, 58, 59, 66 and 68) known to cause cervical cancer. The assay has been reported to detect more than 90% of CIN3+, an immediate precursor tocarcinoma in situ. A negative result does not e xclude the possibility of cytologicabnormalities or of future or underlying CIN2, CIN3, or cancer. Personal lubricantscontaining polyquaternium 15 and antifungal medications containing tioconazole patricio nterfere with the assay performance. In vitro transcripts from low-risk HPV qigejpeoy01, 67, 70 and 82 exhibited cross-reactivity with the assay. The test result must beinterpreted along with the shiela ent's cytology history, other risk factors and otherpertinent laboratory data. The results of this test are not intended to substitute forregular cervical cytology screening. The assay performance has not been evaluated forHPV vaccinated individuals. The effects of other potential variables, such as vaginaldischarge, use of tampons, etc. and specimen collection variables have not beenevaluated.This assay has been validated by the [facility] Department of Pathology and Laboratory Medicine.Kate Malik MD, PhD GC/ChlamydiaGC~NegativeChlamydia~Negative~Test ing is performed using FDA-approved APTIMA COMBO 2 Assay on the [employer] system(i.e., Associate Director Qa-mediated amplification of rRNA followed by target-specifichybridization and dual kinetic fluoresc ence detection). This assay is designed for thedetection of Chlamydia trachomatis (CT) and Neisseria gonorrhoeae (GC) in femaleendocervical and vaginal, male urethral, and female and male urine specime ns. CT/GCviability and/or infectivity can't be inferred from a positive test result since targetRNA may persist in the absence of infectious microorganisms. A negative test doesn'texclude the possibil ity of infection due to possible improper specimencollection/transport/ handling (inadequate specimen collection), presence of inhibitor(s),concurrent antibiotic therapy, or presence of insufficient RNA for detection. The testresult must be interpreted in conjunction with other laboratory and clinical data. Theassay is not intended to replace cervical exams and endocervical specimens for diagnosisof female urogenital infections. The assay is not intended for the evaluation ofsuspected sexual abuse or for other medicao-legal indications. For those patients forwhom a false positive result may have adverse psycho-social impact, the [facility] recommendsretesting. The assay has been validated by the [facility] [place] Department of Pathology and Laboratory Buzz Malik MD, PhD The pap smear is a screening test used as an aid in detecting cervical cancer and itsprecursors. Published data indicates that pap smear testing is subject to false negativeand fa lse positive results. For this reason, periodic repeat testing and follow up of anyunexplained clinical signs and symptoms is recommended.This slide was screened with the aid of the ThinPrep Imaging System. PAP REPORT Plan of Care Name Dates Details Planned Observations Planned Goals not documented Instructions Name Dates Details Instructions not documented Encounters Appointment; GABRIELA GIRARD M.D. On: 27-Mar-2017 10:15 Encounter Diagnosis: Problem not documented Appointment; CHANELL VERGARA M.D. On: 23-Jun-2018 14:00 Encounter Diagnosis: Problem not documented
== END 2018-10-01 15:04 | disposition home or self-care (01) ==
LOC: ER 12:30
DX: S16.1XXA Strain of muscle, fascia and tendon at neck level, initial encounter (principal); E03.9 Hypothyroidism, unspecified
CPT/HCPCS: 96372; 99283; J2930